=== PATIENT | female | born 1990 | race Caucasian/White ===

== ENCOUNTER 2018-12-11 10:41 | Emergency (ER) | payer SELFPAY ==
[2018-12-11] MEDS: ACETAMINOPHEN 325 MG TAB PO (13:14)
== END 2018-12-11 15:04 | disposition home or self-care (01) ==
LOC: FTE 10:41
DX: M54.2 Cervicalgia (principal); R07.9 Chest pain, unspecified; R55 Syncope and collapse
CPT/HCPCS: 70450; 71045; 72040; 81025; 99284-25